=== PATIENT | male | born 1970 | race Caucasian/White ===

== ENCOUNTER → 2022-06-03 | Outpatient (CLI) | payer BC ==
--- NOTE | 2022-06-03 10:16 | Diagnostic Imaging Report ---
INDICATION: Shoulder injury, pain COMPARISON: 05/04/2018 TECHNIQUE: 3 radiographs of the right shoulder dated 06/03/2022. FINDINGS: The distal clavicle is superiorly positioned in relationship to the acromion by 1 shaft width with minimal widening. No fracture of the clavicle. Fracturing of the posterior right 2nd, 3rd, 4th, 5th, and 6th ribs is again noted with some periosteal reaction now present. No new fracture. Mild degenerative changes of the glenohumeral joint. IMPRESSION: Multiple healing posterior right-sided rib fractures. Age-indeterminate separation of the acromioclavicular joint with the clavicle being superiorly positioned in relationship to the acromion by 1 shaft width. Mild degenerative changes. Dictated by: Dictated on workstation # [id number]
== END ==
LOC: ORTHO 08:59
PROVIDERS: ATTEND Orthopaedic Surgery
DX: S43.109A Unspecified dislocation of unspecified acromioclavicular joint, initial encounter (principal); X58.XXXA Exposure to other specified factors, initial encounter
CPT/HCPCS: 73030; 99203

== ENCOUNTER → 2022-06-24 | Outpatient (CLI) | payer BC | LOC: ORTHO 08:46 | PROVIDERS: ATTEND Orthopaedic Surgery | DX: S43.121D Dislocation of right acromioclavicular joint, 100%-200% displacement, subsequent encounter (principal); X58.XXXD Exposure to other specified factors, subsequent encounter | CPT/HCPCS: 99213 ==